=== PATIENT | female | born 1960 | race American Indian/Alaskan Native ===

== ENCOUNTER 2019-02-14 10:00 | Outpatient (CLI) | payer BC ==
--- NOTE | 2019-02-14 10:27 | XRay Report ---
Chest 2 views: History chronic bronchitis. Findings portable Normal cardiomediastinal silhouette. Trachea is midline. No consolidation pneumothorax or pleural effusion. Impression: No acute cardiopulmonary findings.
== END 2019-02-14 10:01 | disposition home or self-care (01) ==
LOC: XRAY 10:00
PROVIDERS: ATTEND Internal Medicine
DX: J20.9 Acute bronchitis, unspecified (principal)
CPT/HCPCS: 71046